=== PATIENT | male | born 2000 | race Two or more races ===

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

== ENCOUNTER 2018-12-03 13:10 | Emergency (ER) | payer OTHER ==
[~2018-12-03] VITALS: Ht 180.3 cm; Wt 81.6 kg
[~2018-12-03 13:10] MED LIST: ACET-704 PO; CEPH500T PO
[2018-12-03 13:35] VITALS: BP 140/85
[2018-12-03] MEDS ORDERED: IBUPROFEN 600 MG TABLET. PO ONE (14:00)
[2018-12-03] MEDS ORDERED: HYDROcodone/APAP 5/325MG 1 TAB TABLET PO ONE (14:00)
--- NOTE | 2018-12-03 14:25 | RAD ---
RIGHT FOOT AP LATERAL OBLIQUE Clinical Indication: dropped couch on right foot, pain to right toes Comparison: None. Findings: There is no acute fracture or dislocation. The bony alignment is normal. Mineralization is normal. No bony erosion. Mild dorsal soft tissue swelling of the midfoot. IMPRESSION: No acute fracture. Electronically signed by: Brandon Armstrong MD (12/03/2018 2:20 PM) [id number]
--- NOTE | 2018-12-03 14:38 | PHYS DOC ---
Past Medical History Past Medical History: No Pertinent History (AYSE SALGADO HOSPITALITY HOUSEKEEPER) Past Surgical History: Appendectomy (AYSE SALGADO [employer]PITAL[employer] HOUSEKEEPER) Alcohol Use: None Drug Use: Marijuana Social History Narrative: last use 3 days ago (AYSE SALGADO HOSPITAL[employer] HOUSEKEEPER) Adult General Chief Complaint Chief Complaint: FOOT INJURY PAIN HPI HPI Patient is a 18 year old male who presents with touch fell on his right foot last night. Patient can wiggle toes but has a hard time bending them. He states it hurts to walk. Rates his pain a 6 out of 10. The pain is nonradiating. (AYSE SALGADO HOSPITALITY HOUSEKEEPER) Review of Systems Review of Systems Constitutional: Denies fever or chills [] Eyes: Denies change in visual acuity, redness, or eye pain [] HENT: Denies nasal congestion or sore throat [] Respiratory: Denies cough or shortness of breath [] Cardiovascular: No additional information not addressed in HPI [] GI: Denies abdominal pain, nausea, vomiting, bloody stools or diarrhea [] : Denies dysuria or hematuria [] Musculoskeletal: Right foot pain and swelling. Denies back pain or joint pain [] Integument: Denies rash or skin lesions [] Neurologic: Denies headache, focal weakness or sensory changes [] All other systems were reviewed and found to be within normal limits, except as documented in this note. (AYSE SALGADO HOSPITAL[employer] HOUSEKEEPER) Current Medications Current Medications Current Medications Medications (Trade) Dose Ordered Sig/Martha Start Time Stop Time Status Last Admin Dose Admin Acetaminophen/ Hydrocodone Bitart (Lortab 5/325) 1 tab 1X ONCE 12/03/18 14:00 12/03/18 14:02 DC 12/03/18 14:35 1 TAB Ibuprofen (Motrin) 600 mg 1X ONCE 12/03/18 14:00 12/03/18 14:02 DC 12/03/18 14:34 600 MG (YAA CUNNINGHAM DO) Allergies Allergies Allergies Coded Allergies Type Severity Reaction Last Updated Verified No Known Drug Allergies 10/20/14 No (YAA CUNNINGHAM DO) Physical Exam Physical Exam Constitutional: Well developed, well nourished, no acute distress, non-toxic appearance. [] HENT: Normocephalic, atraumatic, bilateral external ears normal, oropharynx moist, no oral exudates, nose normal. [] Eyes: PERRLA, EOMI, conjunctiva normal, no discharge. [] Neck: Normal range of motion, no tenderness, supple, no stridor. [] Cardiovascular:Heart rate regular rhythm, no murmur [] Lungs & Thorax: Bilateral breath sounds clear to auscultation [] Abdomen: Bowel sounds normal, soft, no tenderness, no masses, no pulsatile masses. [] Skin: Warm, dry, no erythema, no rash. [] Back: No tenderness, no CVA tenderness. [] Extremities: Anterior right foot and toes. Tenderness, no cyanosis, no clubbing , ROM intact, no edema. [] Neurologic: Alert and oriented X 3, normal motor function, normal sensory function, no focal deficits noted. [] Psychologic: Affect normal, judgement normal, mood normal. [] (AYSE SALGADO APRN) Current Patient Data Vital Signs Vital Signs Date Time Temp Pulse Resp B/P (MAP) Pulse Ox O2 Delivery O2 Flow Rate FiO2 12/03/18 14:35 14 97 Room Air 12/03/18 13:35 97.8 71 140/85 (103) 97.8 (YAA CUNNINGHAM DO) EKG EKG [] (AYSE SALGADO APRN) Radiology/Procedures Radiology/Procedures [] (AYSE SALGADO APRN) Impressions: [facility] [address] [place] [address] IMAGING REPORT Signed PATIENT: OLESYA VARELA ACCOUNT: [id number] : 2000 LOCATION: ER AGE: 18 SEX: M EXAM STATUS: REG ER ORD. PHYSICIAN: AYSE SALGADO APRN REASON: injury, DROPPED COUCH ON FOOT, PAIN AND SWELLING TO TOES PROCEDURE: FOOT RIGHT 3V RIGHT FOOT AP LATERAL OBLIQUE Clinical Indication: dropped couch on right foot, pain to right toes Comparison: None. Findings: There is no acute fracture or dislocation. The bony alignment is normal. Mineralization is normal. No bony erosion. Mild dorsal soft tissue swelling of the midfoot. IMPRESSION: No acute fracture. Electronically signed by: Brandon Armstrong MD (12/03/2018 2:20 PM) [id number] DICTATED and SIGNED BY: BRANDON ARMSTRONG MD DATE: 12/03/18 1418 (AYSE SALGADO APRN) Course & Med Decision Making Course & Med Decision Making Patient is a 18 year old male who presents with touch fell on his right foot last night. Patient can wiggle toes but has a hard time bending them. He states it hurts to walk. Rates his pain a 6 out of 10. The pain is nonradiating. Toes 2 through 5 are 2+ edema and bruised and anterior foot is also bruised and swollen 2+. There is pain to palpation of these toes into anterior foot. There is no deformity or abrasion or laceration seen. X-ray shows no acute findings. He is follow-up with primary care if needed. Use ibuprofen for pain. Also try ice and elevation. Patient is given an [place] wrap. (AYSE SALGADO APRN) Dragon Disclaimer Dragon Disclaimer This electronic medical record was generated, in whole or in part, using a voice recognition dictation system. (AYSE SALGADO APRN) Departure Departure Impression: Primary Impression: Foot contusion Disposition: HOME, SELF-CARE Condition: STABLE Referrals: MILI KING MD (PCP) Patient Instructions: Foot Contusion Additional Instructions: Ice and elevation and ibuprofen. Use [place] wrap as needed to help with pain. Follow up with primary care if needed. Attending Signature Attending Signature I have reviewed the PA/CHEMICAL ETCH OPERATOR's note and plan of care. I was available for consultation as needed during the patient's visit in the emergency department. I agree with the clinical impression, plan, and disposition. (YAA CUNNINGHAM DO) Problem Qualifiers Primary Impression: Foot contusion Encounter type: initial encounter Laterality: right Qualified Codes: S90.31XA - Contusion of right foot, initial encounter AYSE SALGADO APRN Dec 03, 2018 14:38 YAA CUNNINGHAM DO Dec 03, 2018 17:38
== END 2018-12-03 14:48 | disposition home or self-care (01) ==
LOC: ER 13:10
DX: S90.31XA Contusion of right foot, initial encounter (principal); Z90.89 Acquired absence of other organs; W20.8XXA Other cause of strike by thrown, projected or falling object, initial encounter; Y93.89 Activity, other specified; Y92.89 Other specified places as the place of occurrence of the external cause; Y99.8 Other external cause status
CPT/HCPCS: 73630; 99283

== ENCOUNTER 2020-06-09 16:09 | Emergency (ER) | payer SELFPAY ==
[~2020-06-09] VITALS: Ht 182.9 cm; Wt 47.8 kg
[2020-06-09 16:40] VITALS: BP 131/65
--- NOTE | 2020-06-09 18:30 | RAD ---
Three-view right foot dated 06/09/2020. Comparison made to 06/02/2019. CLINICAL INDICATION: Right great toe pain. FINDINGS: 3 views of right foot show normal bony alignment. No displaced fracture. No acute osseous or articular abnormality. IMPRESSION: No acute findings. Electronically signed by: Jeff Abdullahi MD (06/09/2020 6:27 PM) ZAINA
--- NOTE | 2020-06-09 18:38 | PHYS DOC ---
Past Medical History Past Medical History: No Pertinent History Past Surgical History: Appendectomy Smoking Status: Current Every Day Smoker Alcohol Use: None Drug Use: Marijuana Social History Narrative: Marijuana use x's 2/week General Adult EDM: Chief Complaint: TOE PROBLEM HPI: HPI: Patient is a 19 year old male who presents to the emergency department with complaints of right great toe bruising, swelling, and pain. Patient states that his toe bent the wrong way yesterday while he was playing soccer at approximately 2100 hrs. Patient denies any decreased range of motion of the affected toe. He denies any numbness, tingling, or weakness of the affected joint. Patient reports that he has not tried taking anything for relief of his discomfort yet today. He currently rates his pain a 8 out of 10 on the pain scale, he denies any alleviating factors, the pain is worse with palpation and movement. Review of Systems: Review of Systems: Complete review of systems is negative unless otherwise documented in the HPI Heart Score: Risk Factors: Risk Factors: DM, Current or recent (<one month) smoker, HTN, HLP, family history of CAD, obesity. Risk Scores: Score 0 - 3: 2.5% MACE over next 6 weeks - Discharge Home Score 4 - 6: 20.3% MACE over next 6 weeks - Admit for Clinical Observation Score 7 - 10: 72.7% MACE over next 6 weeks - Early Invasive Strategies Allergies: Allergies: Allergies Coded Allergies Type Severity Reaction Last Updated Verified No Known Drug Allergies 10/20/14 No Physical Exam: PE: Constitutional: Well developed, well nourished, no acute distress, non-toxic appearance. [] HENT: Normocephalic, atraumatic, bilateral external ears normal, nose normal. [] Eyes: PERRLA, EOMI, conjunctiva normal, no discharge. [] Neck: Normal range of motion, no stridor. [] Cardiovascular:Heart rate regular rhythm Lungs & Thorax: Respirations even and unlabored, no retractions, no respiratory distress Skin: Warm, dry, no erythema; bruising noted to right great toe, no erythema or warmth Extremities: No: Tenderness to palpation, no crepitus, no obvious deformity, no cyanosis, ROM intact, 1+ edema, PMS intact. [] Neurologic: Alert and oriented X 3, no focal deficits noted. [] Psychologic: Affect normal, judgement normal, mood normal. [] Current Patient Data: Vital Signs: Vital Signs Date Time Temp Pulse Resp B/P (MAP) Pulse Ox O2 Delivery O2 Flow Rate FiO2 06/09/20 16:40 98.8 91 20 131/65 (87) 98 Room Air 98.8 EKG: EKG: [] Radiology/Procedures: Radiology/Procedures: PROCEDURE: FOOT RIGHT 3V Three-view right foot dated 06/09/2020. Comparison made to 06/02/2019. CLINICAL INDICATION: Right great toe pain. FINDINGS: 3 views of right foot show normal bony alignment. No displaced fracture. No acute osseous or articular abnormality. IMPRESSION: No acute findings. [] Course & Med Decision Making: Course & Med Decision Making Pertinent Labs and Imaging studies reviewed. (See chart for details) A post op shoe was applied by the RN not a walking boot. PT tolerated procedure well, NAD Patient verbalized an understanding of home care, medications, follow-up, and return to ED instructions and was in agreement with the plan of care. Raquel Disclaimer: Raquel Disclaimer: This electronic medical record was generated, in whole or in part, using a voice recognition dictation system. Departure Departure Impression: Primary Impression: Great toe pain Qualified Codes: M79.674 - Pain in right toe(s) Additional Impression: Contusion of toe without damage to nail Qualified Codes: S90.111A - Contusion of right great toe without damage to nail, initial encounter Disposition: HOME, SELF-CARE Condition: STABLE Referrals: MILI KING MD (PCP) SAMSON FERNANDEZ MD Patient Instructions: Foot Contusion, [id number] Additional Instructions: You can take Tylenol or ibuprofen as needed for pain.. Recommend application of ice, elevation, and rest of affected extremity. Follow-up with your primary care doctor or Dr. Fernandez if symptoms persist, return to the ER if your symptoms worsen. Justicifation of Admission Dx: Justifications for Admission: Justification of Admission Dx: N/A Splinting Splinting : Location: Right foot Pre-Made Type: velcro (Postop shoe) Pre-Proc Neuro Vasc Exam: normal Post-Proc Neuro Vasc Exam: normal, unchanged from pre-exam RUBA MAR ELECTRICAL INSTRUMENTATION TECHNICIAN Jun 09, 2020 18:38
== END 2020-06-09 19:39 | disposition home or self-care (01) ==
LOC: ER 16:09
DX: S90.111A Contusion of right great toe without damage to nail, initial encounter (principal); F17.200 Nicotine dependence, unspecified, uncomplicated; X50.9XXA Other and unspecified overexertion or strenuous movements or postures, initial encounter; Y93.66 Activity, soccer; Y92.89 Other specified places as the place of occurrence of the external cause; Y99.8 Other external cause status
CPT/HCPCS: 73630; 99283